=== PATIENT | female | born 1960 | race Native Hawaiian/Other Pacific Islander ===

== ENCOUNTER 2018-03-24 19:06 | Emergency (ER) | payer SELFPAY ==
[~2018-03-24] VITALS: Ht 142.2 cm; Wt 44.0 kg
[2018-03-24 19:34] VITALS: BP 146/75; PULSE 72; RESP 16; TEMP 98.9; O2SAT 99
[2018-03-24] MEDS ORDERED: LIDOCAINE VISCOUS 2% SOLN 15 ML UDC SWISH-SPIT ONE (20:45)
[2018-03-24] MEDS ORDERED: ALUMINUM/MAGNESIUM/SIMETH 30 ML CUP PO ONE (20:45)
[2018-03-24] MEDS ORDERED: FAMOTIDINE 20 MG/2 ML VIAL IV PUSH SCH (20:45)
--- NOTE | 2018-03-24 20:46 | PD ---
HPI Chief Complaint: Chest Pain Time Seen by Provider: 20:20 Travel History International Travel<30 days: No Contact w/Intl Traveler<30days: No Traveled to known affect area: No History of Present Illness HPI Patient is a 57-year-old female who has had a few days of substernal chest pain burning it is alleviated by burping temporarily but feels connected to burping she reports she has had a stress test a few years back cardiac which was negative. She had an endoscopy 10 years ago that showed an ulcer which feels similar to the pain that she is having today patient is taking Nexium with minimal relief. She denies black stool or any change in her stool she has had normal bowel movements she is not vomiting she has never had bleeding she said in the past the ulcer was cured with antacids and treatment. Localized burning- like pain alleviated by burping not alleviated by Nexium comes to the ER has not seen another doctor for this complaint PFSH Past Medical History Diminished Hearing: No Gastrointestinal Disorders: Yes (ULCERS) Immunizations Current: Yes Past Surgical History Gynecologic Surgery: Yes (BREAST) Social History Alcohol Use: No Tobacco Use: No Substance Use: No Allergies-Medications (Allergen,Severity, Reaction): Coded Allergies: amoxicillin (Verified Allergy, Unknown, 03/24/18) Reported Meds & Prescriptions Reported Meds & Active Scripts Active Lidocaine Viscous Liq 2 % Liqd 5 Ml SWISH-SWAL DIRECTED PRN Review of Systems Except as stated in HPI: all other systems reviewed are Neg Cardiovascular: Positive: Chest Pain or Discomfort Gastrointestinal: Positive: Abdominal Pain (burping ) Physical Exam Narrative GENERAL: pt has GERD like pain SKIN: Warm and dry. HEAD: Atraumatic. Normocephalic. EYES: Pupils equal and round. No scleral icterus. No injection or drainage. ENT: No nasal bleeding or discharge. Mucous membranes pink and moist. NECK: Trachea midline. No JVD. CARDIOVASCULAR: Regular rate and rhythm. RESPIRATORY: No accessory muscle use. Clear to auscultation. Breath sounds equal bilaterally. GASTROINTESTINAL: Abdomen epigastric tenderness MUSCULOSKELETAL: Extremities without clubbing, cyanosis, or edema. No obvious deformities. NEUROLOGICAL: Awake and alert. No obvious cranial nerve deficits. Motor grossly within normal limits. Five out of 5 muscle strength in the arms and legs. Normal speech. PSYCHIATRIC: Appropriate mood and affect; insight and judgment normal. Data Data Last Documented VS Vital Signs Date Time Temp Pulse Resp B/P (MAP) Pulse Ox O2 Delivery O2 Flow Rate FiO2 03/25/18 00:13 60 16 120/82 (95) 100 03/24/18 22:30 Room Air 03/24/18 19:34 98.9 Orders Orders Electrocardiogram (03/24/18 20:32) Complete Blood Count With Diff (03/24/18 20:32) Comprehensive Metabolic Panel (03/24/18 20:32) Lipase (03/24/18 20:32) Al-Mag Hy-Si 40-40-4 Mg/Ml Liq (Mag-Al P (03/24/18 20:45) Lidocaine 2% Viscous (Xylocaine 2% Visco (03/24/18 20:45) Famotidine Inj (Pepcid Inj) (03/24/18 20:45) Troponin I (03/24/18 22:16) Troponin I (03/24/18 22:57) Pantoprazole Inj (Protonix Inj) (03/24/18 23:00) Ed Discharge Order (03/24/18 23:57) Labs Laboratory Tests Test 03/24/18 20:45 03/24/18 23:03 White Blood Count 7.1 TH/MM3 Red Blood Count 5.08 MIL/MM3 Hemoglobin 14.0 GM/DL Hematocrit 42.4 % Mean Corpuscular Volume 83.4 FL Mean Corpuscular Hemoglobin 27.6 PG Mean Corpuscular Hemoglobin Concent 33.0 % Red Cell Distribution Width 12.5 % Platelet Count 185 TH/MM3 Mean Platelet Volume 10.3 FL Neutrophils (%) (Auto) 50.7 % Lymphocytes (%) (Auto) 40.8 % Monocytes (%) (Auto) 6.8 % Eosinophils (%) (Auto) 1.3 % Basophils (%) (Auto) 0.4 % Neutrophils # (Auto) 3.6 TH/MM3 Lymphocytes # (Auto) 2.9 TH/MM3 Monocytes # (Auto) 0.5 TH/MM3 Eosinophils # (Auto) 0.1 TH/MM3 Basophils # (Auto) 0.0 TH/MM3 CBC Comment DIFF FINAL Differential Comment Blood Urea Nitrogen 11 MG/DL Creatinine 0.77 MG/DL Random Glucose 123 MG/DL Total Protein 8.0 GM/DL Albumin 4.0 GM/DL Calcium Level 9.5 MG/DL Alkaline Phosphatase 88 U/L Aspartate Amino Transf (AST/SGOT) 18 U/L Alanine Aminotransferase (ALT/SGPT) 34 U/L Total Bilirubin 0.3 MG/DL Sodium Level 140 MEQ/L Potassium Level 3.2 MEQ/L Chloride Level 104 MEQ/L Carbon Dioxide Level 28.2 MEQ/L Anion Gap 8 MEQ/L Estimat Glomerular Filtration Rate 78 ML/MIN Troponin I LESS THAN 0.02 NG/ML LESS THAN 0.02 NG/ML Lipase 199 U/L [facility] [place] Medical Decision Making Medical Screen Exam Complete: Yes Emergency Medical Condition: Yes Differential Diagnosis Patient has negative troponin 2 she has total relief from GI cocktail differential diagnosis is gastritis versus pancreatitis versus gallbladder disease versus Narrative Course pt has troponin negative times 2 and ekg NSR 63 beats min flipped t waves in v2-3 pt has total relief from mallalox lido pepecid protonix and safe for discharge Diagnosis Primary Impression: GERD (gastroesophageal reflux disease) Qualified Codes: K21.9 - Gastro-esophageal reflux disease without esophagitis Referrals: Jairo Butts MD Patient Instructions: Gastritis (ED), General Instructions Scripts Lidocaine Viscous Liq (Lidocaine Viscous Liq) 2 % Liqd 5 ML SWISH-SWAL DIRECTED Y for PAIN, #1 BOTTLE 0 Refills Prov: Nabil Jacobs MD 03/24/18 Disposition: 01 DISCHARGE HOME Condition: Good Nabil Jacobs MD March 24, 2018 20:46
[2018-03-24 21:14] LABS: AUTOMATED NEUTROPHIL # 3.6 TH/MM3 (1.8-7.7); BASOPHIL % 0.4 % (0.0-2.0); EOSINOPHIL # 0.1 TH/MM3 (0-0.4); EOSINOPHIL % 1.3 % (0.0-4.0); HEMATOCRIT 42.4 % (35.0-46.0); LYMPH % 40.8 % (9.0-44.0); LYMPHOCYTE # 2.9 TH/MM3 (1.0-4.8); MEAN CELL VOLUME 83.4 FL (80.0-100.0); MEAN CORPUSCULAR HEMOGLOBIN 27.6 PG (27.0-34.0); MEAN PLATELET VOLUME 10.3 FL (7.0-11.0); MONO % 6.8 % (0.0-8.0); MONOCYTE # 0.5 TH/MM3 (0-0.9); NEUT % 50.7 % (16.0-70.0); PLATELET COUNT 185 TH/MM3 (150-450); RED BLOOD COUNT 5.08 MIL/MM3 (4.00-5.30); RED CELL DISTRIBUTION WIDTH 12.5 % (11.6-17.2); WHITE BLOOD COUNT 7.1 TH/MM3 (4.0-11.0)
[2018-03-24 21:41] LABS: AST (GOT) 18 U/L (15-37); BICARBONATE 28.2 MEQ/L (21.0-32.0); BLOOD UREA NITROGEN 11 MG/DL (7-18); CALCIUM 9.5 MG/DL (8.5-10.1); CHLORIDE 104 MEQ/L (98-107); CREATININE 0.77 MG/DL (0.50-1.00); GLOMERULAR FILTRATION RATE 78 ML/MIN (>89); GLUCOSE,RANDOM 123 MG/DL (74-106); SODIUM (NA) 140 MEQ/L (136-145)
[2018-03-24 21:42] LABS: ALT (GPT) 34 U/L (10-53)
[2018-03-24 21:44] LABS: ALKALINE PHOSPHATASE 88 U/L (45-117); TOTAL BILIRUBIN ADULT 0.3 MG/DL (0.2-1.0)
[2018-03-24 22:30] VITALS: BP 126/84; PULSE 56; RESP 16; O2SAT 100
[2018-03-24] MEDS ORDERED: PANTOPRAZOLE SODIUM 40 MG VIAL IV PUSH ONE (23:00)
[2018-03-24] MEDS ORDERED: LIDO1SOL8 SWISH-SWAL (23:54)
[2018-03-25 00:13] VITALS: BP 120/82
--- NOTE | 2018-03-25 18:03 | EKG ---
Date Performed: 03/24/2018 Time Performed: 20:30:54 PTAGE: 57 years EKG: Sinus rhythm POSSIBLE LEFT ATRIAL ENLARGEMENT INCOMPLETE RIGHT BUNDLE BRANCH BLOCK ST DEVIATION AND MODERATE T-WA VE ABNORMALITY, CONSIDER ANTEROLATERAL ISCHEMIA ABNORMAL ECG NO PREVIOUS TRACING DOCTOR: Juliet Merlos Interpretating Date/Time 03/25/2018 17:58:40
== END 2018-03-25 00:13 | disposition home or self-care (01) ==
LOC: NEPE 19:06
DX: K21.9 Gastro-esophageal reflux disease without esophagitis (principal); R07.89 Other chest pain; I45.10 Unspecified right bundle-branch block; R94.31 Abnormal electrocardiogram [ECG] [EKG]; Z88.0 Allergy status to penicillin
CPT/HCPCS: 80053; 83690; 84484; 85025; 93005; 96374; 96375; 99284; C9113